=== PATIENT | male | born 1975 | race Caucasian/White ===

== ENCOUNTER 2017-07-29 09:16 | Emergency (ER) | payer BC ==
[2017-07-29 09:34] VITALS: BP 128/85
--- NOTE | 2017-07-29 10:25 | UC ---
Throat Pain/Nasal Jason HPI - HPI Summary HPI Summary: 42 y/o male presents to the urgent care c/o sinus pain and congestion, b/l ear pain, and headache for the past 2 days. Pt reports he has had chronic sinusitis for many years but he hasn't been managed for many years. Pain is 5/10 associated with green nasal discharge and subjective fever. He has been taking acetaminophen every 1g every 4hrs to alleviate symptoms. Pt requests antibiotics since this is the only way her sinusitis improves. Pt denies SOB, dizziness, visual disturbances, chest pain, N/V/D, - History of Current Complaint Hx Obtained From: Patient Onset/Duration: Gradual Onset, Lasting Weeks, Worse Since - 2 days ago Severity: Severe Pain Intensity: 8 - sinus pain and LALA Pain Scale Used: 0-10 Numeric Cough: None Associated Signs & Symptoms: Positive: Sinus Discomfort, Nasal Discharge - yellowish nasal discharge. Negative: Fever Related History: Seasonal Allergies - Epiglottits Risk Factors Epiglottis Risk Factors: Negative <Lucy Mera - Last Filed: 07/30/17 00:44> <Kitty Cook - Last Filed: 08/01/17 20:29> - History of Current Complaint Chief Complaint: UCRespiratory Stated Complaint: SINUS COMPLAINT Time Seen by Provider: 07/29/17 10:04 - Allergies/Home Medications Allergies/Adverse Reactions: Allergies Allergy/AdvReac Type Severity Reaction Status Date / Time pollen Allergy Congestion Uncoded 07/29/17 09:35 Home Medications: Home Medications Multivitamins/Minerals TAB* [Thera M Plus TAB*] 1 tab PO DAILY 07/29/17 [ History Confirmed 07/29/17] PMH/Surg Hx/FS Hx/Imm Hx Previously Healthy: Yes Cardiovascular History: Hypertension - diet controlled - Surgical History Surgical History: None - Family History Known Family History: Positive: Cardiac Disease, Hypertension, Diabetes - Social History Occupation: Employed Full-time Lives: With Family Alcohol Use: None Substance Use Type: None Smoking Status (MU): Heavy Every Day Tobacco Smoker Type: Cigarettes Amount Used/How Often: 1.5 packs day Household Exposure Type: Cigarettes - Immunization History Most Recent Tetanus Shot: 2011 <Lucy Mera - Last Filed: 07/30/17 00:44> Review of Systems Constitutional: Fever - subjective at home Skin: Negative Eyes: Negative ENT: Ear Ache - B/L, Nasal Discharge - green nasal discharge, Sinus Congestion, Sinus Pain/Tenderness Respiratory: Negative Cardiovascular: Negative Gastrointestinal: Negative Genitourinary: Negative Motor: Negative Neurovascular: Negative Musculoskeletal: Negative Neurological: Headache Psychological: Negative Is Patient Immunocompromised?: No All Other Systems Reviewed And Are Negative: Yes <[email or web address] lyman Last Filed: 07/30/17 00:44> Physical Exam Triage Information Reviewed: Yes Appearance: Well-Appearing, No Pain Distress, Well-Nourished Vital Signs: Initial Vital Signs Temp 99 F 07/29/17 09:25 Pulse 76 07/29/17 09:25 Resp 16 07/29/17 09:25 BP 128/85 07/29/17 09:25 Pulse Ox 100 07/29/17 09:25 Vital Signs Reviewed: Yes Eye Exam: Normal Eyes: Positive: Conjunctiva Clear - PERRLA, EOMI ENT: Positive: Normal ENT inspection, Hearing grossly normal, Pharynx normal, Nasal congestion - edematous and erythematous nasal mucosa,, Nasal drainage - with green nasal discharge, TMs normal - RT external ear canal clear. RT TM with erythema and yellowish discharge, Lf external ear canl clear, LF TM WNL, Other: - B/L maxillary and frontal tenderness on percussion. Neck exam: Normal Neck: Positive: Supple, Nontender, Enlarged Nodes @ - RT posterior cervical lymphnode tender and enlarged Respiratory Exam: Normal Respiratory: Positive: Chest non-tender, Lungs clear, Normal breath sounds, No respiratory distress Cardiovascular Exam: Normal Cardiovascular: Positive: RRR, No Murmur, Pulses Normal, Brisk Capillary Refill Abdominal Exam: Normal Abdomen Description: Positive: Nontender, No Organomegaly, Soft. Negative: CVA Tenderness (R), CVA Tenderness (L) Bowel Sounds: Positive: Present Musculoskeletal Exam: Normal Musculoskeletal: Positive: Strength Intact, ROM Intact, No Edema Neurological Exam: Normal Psychological Exam: Normal Skin Exam: Normal <Lucy Mera Hakeem Filed: 07/30/17 00:44> Vital Signs: Initial Vital Signs Temp 99 F 07/29/17 09:25 Pulse 76 07/29/17 09:25 Resp 16 07/29/17 09:25 BP 128/85 07/29/17 09:25 Pulse Ox 100 07/29/17 09:25 <Kitty Cook - Last Filed: 08/01/17 20:29> Throat Pain/Nasal Course/Dx - Course Course Of Treatment: 42 y/o male presents to the urgent care c/o sinus pain and congestion, b/l ear pain, and headache for the past 2 days. Pt reports he has had chronic sinusitis for many years but he hasn't been managed for many years. Pain is 5/10 associated with green nasal discharge and subjective fever. He has been taking acetaminophen every 1g every 4hrs to alleviate symptoms. Pt requests antibiotics since this is the only way her sinusitis improves. Pt denies SOB, dizziness, visual disturbances, chest pain, N/V/D. Hx obtained. Pt with an acute Rt otitis media and sinusitis. Pt Rx Augmentin PO and Ibuprofen PO for pain and LALA. Pt advised to take Acetaminophen only as directed since increase amounts can affect his liver. Pt given ENT referral w/ Dr Muñoz for further evaluation on his chronic sinusitis and ear infections. Also strongly advised to make an appt with a PCP for an annual physical.Pt understood and agreed with plan of care. Pt left the clinic ambulating. - Differential Dx/Diagnosis Differential Diagnosis/HQI/PQRI: Influenza, Laryngitis, Pharyngitis, Sinusitis, Tonsillitis, URI Provider Diagnoses: 1-Acute sinusitis. 2- Acute RT otitis media <Lucy Mera - Last Filed: 07/30/17 00:44> Discharge <Lucy Mera - Last Filed: 07/30/17 00:44> <Kitty Cook - Last Filed: 08/01/17 20:29> - Discharge Plan Condition: Stable Disposition: HOME Prescriptions: Amoxicillin/Clavulanate TAB* [Augmentin TAB 875*] 875 mg PO BID #20 tab Fluticasone NASAL SPRAY 50MCG* [Flonase NASAL SPRAY 50MCG*] 2 spray BOTH NARES DAILY #1 btl Ibuprofen TAB* [Motrin TAB* 800 MG] 800 mg PO Q6H #30 tab Loratadine & Pseudoephedrine [Claritin-D 12 Hour] 1 tab PO BID #60 tab Patient Education Materials: Sinusitis (ED), Otitis Media (ED) Referrals: No Primary Care Phys,NOPCP [Primary Care Provider] - [facility] [place] PHYSICIAN REFERRAL [Outside] - 1 Week Bradley Muñoz MD [Medical Doctor] - 1 Week Additional Instructions: 1- Please take the full course of the antibiotic to avoid resistance. 2-Please take ibuprofen PO q6-8hrs prn as instructed after meals to alleviate pain, Headache 3- Use the Flonase and take the Claritine PO to alleviate seasonal allergies. 3-Please f/u with a PCP from the [facility] referral line for a physical examination and further evaluation and treatment since you haven' been with a PCP in many years 4- Please f/u with the ENT Dr Muñoz for further evaluation in your ears and sinusitis Attestation Statement User Type: Provider - I was available for consult. This patient was seen by the MARY LOU. The patient was not presented to, seen by, or examined by me. -Ry <Kitty Cook - Last Filed: 08/01/17 20:29>
== END 2017-07-29 10:41 | disposition home or self-care (01) ==
LOC: UCCORT 09:16
DX: J01.90 Acute sinusitis, unspecified (principal)
CPT/HCPCS: 99212; G0463

== ENCOUNTER 2019-03-26 12:56 | Emergency (ER) | payer BC ==
[2019-03-26 13:28] VITALS: BP 123/84
== END 2019-03-26 14:21 | disposition left against medical advice (07) ==
LOC: UCCORT 12:56
DX: R05 Cough (principal); R07.89 Other chest pain; Z53.21 Procedure and treatment not carried out due to patient leaving prior to being seen by health care provider